=== PATIENT | male | born 1995 | race Hispanic/Latino ===

== ENCOUNTER 2024-05-01 09:04 | Inpatient (IN) | payer OTHER ==
[2024-04-29 08:31] LABS: BASOPHILS # (AUTO) 0.1 (0.0-0.1); BASOPHILS % 1.1 % (0.0-1.0); EOSINOPHILS # (AUTO) 0.2 (0.0-0.4); EOSINOPHILS % 2.3 % (0.0-6.0); HEMATOCRIT 40.8 % (38.2-49.6); HEMOGLOBIN 13.1 g/dL (14.0-18.0); LYMPHOCYTES # (AUTO) 2.2 (1.0-3.2); LYMPHOCYTES % 30.8 % (18.0-39.1); MEAN CORPUSCULAR HEMOGLOBIN 28.1 pg (28-32); MEAN CORPUSCULAR HGB CONC 32.1 g/dL (31-35); MEAN CORPUSCULAR VOLUME 87.6 fL (81-99); MONOCYTES # (AUTO) 0.5 (0.2-0.8); NEUTROPHILS # (AUTO) 4.1 (2.1-6.9); NEUTROPHILS % 58.5 % (38.7-80.0); PLATELET COUNT 312 x10e3/uL (140-360); RED BLOOD COUNT 4.66 x10e6/uL (4.3-5.7); WHITE BLOOD COUNT 6.97 x10e3/uL (4.8-10.8)
[2024-04-29 08:55] LABS: ALBUMIN 3.9 g/dL (3.5-5.0); ALBUMIN/GLOBULIN RATIO 1.2 (0.8-2.0); ANION GAP 12.1 mmol/L (8-16); BILIRUBIN,TOTAL 0.2 mg/dL (0.2-1.2); CREATININE, SERUM 0.91 mg/dL (0.72-1.25); POTASSIUM 4.1 mmol/L (3.5-5.1); TOTAL PROTEIN 7.1 g/dL (6.5-8.1)
[~2024-05-01 09:04] MED LIST: ALIGN4 MG PO; AMOX TR-K CLV1 EAC2 PO; CEPHALEXIN500 MG PO; KETOROLAC TROME10 MG PO; MAGOX 400400 MG PO; METAMUCIL FIBE3.4 GM PO; METRONIDAZOLE500 MG PO; ONDANSETRON ODT4 MG PO; PANTOPRAZOLE SO40 MG PO; PROTONIX20 MG PO; ULTRAM 50MG50 MG PO
[2024-05-01] MEDS: LACTATED RINGER'S 1,000 ML ONE (09:52)
[2024-05-01] MEDS ORDERED: KETAMINE 50MG/5ML SYR ONE (12:45)
[2024-05-01] MEDS ORDERED: SUCCINYLCHOLINE CHLORIDE 20 MG/ML 10ML VIAL ONE (14:14)
[2024-05-01] MEDS ORDERED: SEVOFLURANE INHAL SOLN 250 ML PEN BTL ONE (14:14)
[2024-05-01] MEDS ORDERED: DEXAMETHASONE SOD PHOS INJ 4 MG/ML SDV ONE (14:14)
[2024-05-01] MEDS ORDERED: ONDANSETRON HCL INJ 2MG/ML 2ML 2 MG/ML VIAL ONE (14:14)
[2024-05-01] MEDS ORDERED: LIDOCAINE HCL 2% LOCAL INJ 5 ML SDV VIAL INJ ONE (14:14)
[2024-05-01] MEDS ORDERED: ROCURONIUM BROMIDE 10 MG/ML 5ML VIAL IV ONE (14:14)
[2024-05-01] MEDS ORDERED: PROPOFOL IV EMULSION 10 MG/ML 20 ML VIAL ONE (14:14)
[2024-05-01] MEDS ORDERED: SUGAMMADEX SODIUM 200 MG/2 ML VIAL IV ONE (14:14)
[2024-05-01] MEDS ORDERED: ACETAMINOPHEN 1000 MG/100 ML IV ONE (14:14)
[2024-05-01] MEDS ORDERED: ACETAMINOPHEN 1000 MG/100 ML IV PRN (16:15)
[2024-05-01] MEDS ORDERED: NALOXONE HCL INJ 0.4 MG/ML AMP IV PRN (16:15)
[2024-05-01] MEDS: MEPERIDINE HCL INJ 25 MG/ML VIAL ONE (16:35)
[2024-05-01] MEDS: HYDROMORPHONE 0.2MG/ML-SOD CHL 30ML PCA SYRINGE IV PRN (16:40)
[2024-05-01] MEDS ORDERED: FENTANYL CITRATE/PF 100MCG/2 ML INJ ONE (18:09)
[2024-05-01] MEDS ORDERED: MIDAZOLAM HCL 2 MG/2 ML VIAL ONE (18:09)
[2024-05-01] MEDS: CEFTRIAXONE 2 GM in SODIUM CHLORIDE 0.9% 100 ML IV SCH (18:10)
[2024-05-01] MEDS: SODIUM CHLORIDE 0.9% 1000ML 1,000 ML IV SCH (18:10)
[2024-05-01] MEDS: SODIUM CHLORIDE 0.9% 250ML IRRIG IR SCH (18:11)
[2024-05-01 18:35] VITALS: BP 152/84; PULSE 92; RESP 16; TEMP 97.5; O2SAT 97
[2024-05-01 18:41] VITALS: BP 146/88; PULSE 90; RESP 18; TEMP 97.2; O2SAT 95
[2024-05-01 19:54] VITALS: PULSE 99; RESP 16; O2SAT 96
[2024-05-01 20:00] VITALS: BP 151/92; PULSE 93; RESP 18; TEMP 99; O2SAT 95
[2024-05-01] MEDS: ONDANSETRON HCL INJ 2MG/ML 2ML 2 MG/ML VIAL IV PRN (20:33)
[2024-05-01 21:00] VITALS: BP 151/92; PULSE 93; RESP 18; TEMP 99; O2SAT 95
[2024-05-01] MEDS: BUPIVACAINE LIPOSOME/PF 266 MG/20 ML IJ ONE (21:23)
[2024-05-01] MEDS: ROPIVACAINE 123 MG, EPINEPHRINE HCL 1:1000 1ML 0.25 MG, CLONIDINE HCL 0.04 MG, KETOROLA... INJ ONE (21:23)
[2024-05-02] VITALS (10 sets, daily range): BP systolic 116–152; BP diastolic 67–90; PULSE 65–90; RESP 17–20; TEMP 98.1–99.4; O2SAT 94–99
[2024-05-02 05:59] LABS: BASOPHILS % 0.1 % (0.0-1.0); HEMATOCRIT 40.2 % (38.2-49.6); HEMOGLOBIN 12.6 g/dL (14.0-18.0); LYMPHOCYTES # (AUTO) 1.3 (1.0-3.2); LYMPHOCYTES % 10.7 % (18.0-39.1); MEAN CORPUSCULAR HEMOGLOBIN 28.2 pg (28-32); MEAN CORPUSCULAR HGB CONC 31.3 g/dL (31-35); MEAN CORPUSCULAR VOLUME 89.9 fL (81-99); MONOCYTES % 8.4 % (4.4-11.3); NEUTROPHILS # (AUTO) 9.7 (2.1-6.9); NEUTROPHILS % 80.4 % (38.7-80.0); PLATELET COUNT 324 x10e3/uL (140-360); RED BLOOD COUNT 4.47 x10e6/uL (4.3-5.7); RED CELL DISTRIBUTION WIDTH 11.9 % (11.7-14.4); WHITE BLOOD COUNT 12.11 x10e3/uL (4.8-10.8)
[2024-05-02 06:40] LABS: CALCIUM 8.4 mg/dL (8.4-10.2); CREATININE, SERUM 0.89 mg/dL (0.72-1.25)
[2024-05-03] VITALS (11 sets, daily range): BP systolic 125–144; BP diastolic 78–96; PULSE 71–97; RESP 18; TEMP 98.2–100.6; O2SAT 95–98
[2024-05-03 05:35] LABS: BASOPHILS % 0.4 % (0.0-1.0); EOSINOPHILS # (AUTO) 0.1 (0.0-0.4); EOSINOPHILS % 0.6 % (0.0-6.0); HEMATOCRIT 38.5 % (38.2-49.6); HEMOGLOBIN 11.9 g/dL (14.0-18.0); LYMPHOCYTES # (AUTO) 1.4 (1.0-3.2); LYMPHOCYTES % 13.5 % (18.0-39.1); MEAN CORPUSCULAR HEMOGLOBIN 28.1 pg (28-32); MEAN CORPUSCULAR HGB CONC 30.9 g/dL (31-35); MONOCYTES # (AUTO) 0.9 (0.2-0.8); MONOCYTES % 8.2 % (4.4-11.3); NEUTROPHILS # (AUTO) 7.9 (2.1-6.9); NEUTROPHILS % 76.9 % (38.7-80.0); PLATELET COUNT 303 x10e3/uL (140-360); RED BLOOD COUNT 4.23 x10e6/uL (4.3-5.7); RED CELL DISTRIBUTION WIDTH 12.1 % (11.7-14.4); WHITE BLOOD COUNT 10.31 x10e3/uL (4.8-10.8)
[2024-05-03 05:54] LABS: ANION GAP 13.8 mmol/L (8-16); CALCIUM 8.3 mg/dL (8.4-10.2); CREATININE, SERUM 0.96 mg/dL (0.72-1.25); POTASSIUM 3.8 mmol/L (3.5-5.1)
[2024-05-03] MEDS ORDERED: SODIUM CHLORIDE 0.9% 100 ML ONE (11:14)
[2024-05-03] MEDS: BISACODYL 10 MG SUPP PR ONE (11:21)
[2024-05-03] MEDS: HYDROMORPHONE 1MG/1ML INJ IV PRN (15:59)
[2024-05-03] MEDS: BISACODYL 10 MG SUPP PR SCH (21:03)
[2024-05-04] VITALS (9 sets, daily range): BP systolic 118–150; BP diastolic 70–91; PULSE 57–76; RESP 16–20; TEMP 97–99; O2SAT 95–100
[2024-05-04 05:43] LABS: BASOPHILS % 0.4 % (0.0-1.0); EOSINOPHILS # (AUTO) 0.2 (0.0-0.4); HEMATOCRIT 39.1 % (38.2-49.6); LYMPHOCYTES # (AUTO) 1.9 (1.0-3.2); MEAN CORPUSCULAR HEMOGLOBIN 27.8 pg (28-32); MEAN CORPUSCULAR HGB CONC 30.7 g/dL (31-35); MEAN CORPUSCULAR VOLUME 90.7 fL (81-99); MONOCYTES # (AUTO) 0.8 (0.2-0.8); MONOCYTES % 8.5 % (4.4-11.3); NEUTROPHILS # (AUTO) 6.8 (2.1-6.9); NEUTROPHILS % 69.7 % (38.7-80.0); PLATELET COUNT 319 x10e3/uL (140-360); RED BLOOD COUNT 4.31 x10e6/uL (4.3-5.7); RED CELL DISTRIBUTION WIDTH 11.9 % (11.7-14.4); WHITE BLOOD COUNT 9.82 x10e3/uL (4.8-10.8)
[2024-05-04 05:58] LABS: ANION GAP 13.9 mmol/L (8-16); CALCIUM 8.9 mg/dL (8.4-10.2); CREATININE, SERUM 0.89 mg/dL (0.72-1.25); POTASSIUM 3.9 mmol/L (3.5-5.1)
[2024-05-04] MEDS: HYDROCODONE/APAP 7.5MG-325MG 1 EA TAB PO PRN (21:12)
[2024-05-05 00:52] VITALS: BP 133/80; PULSE 73; RESP 18; TEMP 98.6; O2SAT 97
[2024-05-05 04:00] VITALS: BP 134/79; PULSE 65; RESP 18; TEMP 98.3; O2SAT 97
[2024-05-05 07:50] VITALS: BP 131/85; PULSE 57; RESP 17; TEMP 98.4; O2SAT 100
[2024-05-05 08:30] VITALS: BP 131/85; PULSE 57; RESP 17; TEMP 98.4; O2SAT 100
[2024-05-05 11:30] VITALS: BP 138/85; PULSE 60; RESP 17; TEMP 98.6; O2SAT 98
[2024-05-05 15:56] VITALS: BP 150/96; PULSE 67; RESP 18; TEMP 95.7; O2SAT 97
== END 2024-05-05 19:05 | disposition home or self-care (01) | DRG 331 ==
LOC: OR 09:04 → PACU V 16:28 → MED/SURG2 17:45
PROVIDERS: ADMIT Surgery; ATTEND Surgery
PROC: 0DBM0ZZ Excision of Descending Colon, Open Approach (ICD-10-PCS; 2024-05-01)
PROC: 0DTN0ZZ Resection of Sigmoid Colon, Open Approach (ICD-10-PCS; principal; 2024-05-01 12:53)
DX: K57.20 Diverticulitis of large intestine with perforation and abscess without bleeding (principal)
CPT/HCPCS: 36415; 80048; 80053; 85025; 88307; 94799; 99252; J0171; J0330; J0694; J0696; J1100; J1170; J1885; J2001; J2175; J2250; J2405; J2470; J2795; J7030; J7050